=== PATIENT | male | born 1995 | race Caucasian/White ===

== ENCOUNTER 2016-08-15 19:09 | Emergency (ER) | payer BC ==
[~2016-08-15] VITALS: Ht 180.3 cm; Wt 77.7 kg
[2016-08-15 19:34] VITALS: TEMP 36.5; Ht 180.3 cm; Wt 77.7 kg
[2016-08-15 20:59] LABS: BASO % 0.1 %; BASO ABS # 0.01 K/uL (0-0.2); COMPLETE YES; EOS % 1.6 %; IG% 0.4 %; LYMPH % 21.1 %; LYMPH ABS # 1.42 K/uL (1.2-3.4); MEAN CELL VOLUME 87.9 fL (80-100); MEAN CORPUSCULAR HGB CONC 36.5 g/dl (32-36); MEAN PLATELET VOLUME 9.1 fL (7.4-10.4); NEUT % 69.8 %; PLATELET COUNT 179 K/uL (130-400); RED BLOOD COUNT 3.87 M/uL (4.7-6.1); WHITE BLOOD COUNT 6.72 K/uL (4.8-10.8)
[2016-08-15 21:08] LABS: URINE APPEARANCE CLEAR (CLEAR); URINE BILIRUBIN NEG (NEG); URINE COLOR YELLOW; URINE NITRITE NEG (NEG); URINE SPECIFIC GRAVITY 1.012 (1.000-1.030); UROBILINOGEN NEG (NEG); ZZUR CULT IF INDIC CLEAN CATCH NO
[2016-08-15 21:11] LABS: MANUAL MICROSCOPIC REQUIRED? NO; REVIEW REQ? NO
[2016-08-15 21:25] LABS: BUN/CREATININE RATIO 19.5 (10-20); CREATININE 0.88 mg/dl (0.60-1.40); POTASSIUM 3.9 mmol/L (3.5-5.1)
[2016-08-15] MEDS ORDERED: OPTIRAY 320 IV PRN (21:30)
--- NOTE | 2016-08-15 22:54 | DIAGNOSTIC IMAGING REPORT ---
CT ABD/PELVIS IV CONTRAST ONLY CLINICAL HISTORY: Abdominal pain status post trauma. History of splenomegaly. COMPARISON STUDY: None. TECHNIQUE: Following the IV administration of 116 mL of Optiray-320, CT scan of the abdomen and pelvis was performed from the lung bases to the proximal femurs. Images are reviewed in the axial, sagittal, and coronal planes. IV contrast was administered without complication. CT DOSE: 275.28 mGy.cm FINDINGS: Lower chest: The heart is normal in size and configuration, without pericardial effusion. The lung bases and pleural spaces are clear. Liver: The contrast-enhanced liver is normal in size, contour, and attenuation. There is no intrahepatic biliary ductal dilatation. The hepatic veins and portal veins are patent. Gallbladder: Unremarkable. Spleen: The spleen is mildly enlarged measuring 17 cm. There is no evidence of acute splenic injury. Pancreas: Unremarkable. Adrenal glands: Unremarkable. Kidneys: There is symmetric renal cortical enhancement. The kidneys are normal in size without hydronephrosis. Bowel: There are no transition zones indicate bowel obstruction. There is no evidence of acute diverticulitis. There are no extraluminal air collections. There is no interloop fluid. Peritoneum: There is no intraperitoneal free air or abdominal ascites. Vasculature: The abdominal aorta is normal in course and caliber. Adenopathy: None. Pelvic viscera: The bladder, and pelvic viscera are unremarkable. Skeletal structures: No destructive osseous lesions are seen. IMPRESSION: 1. Splenomegaly 2. No acute findings. No CT evidence of acute intra-abdominal or pelvic injury Electronically signed by: Landon Verduzco M.D. 08/15/2016 10:53 PM Dictated Date/Time: 08/15/2016 10:50 PM
[2016-08-16 00:02] VITALS: BP 140/72; PULSE 46; O2SAT 96
--- NOTE | 2016-08-16 02:29 | EMERGENCY ROOM VISIT NOTE ---
History Report prepared by Prateekibgraciela: Leslie Serna Under the Supervision of: Dr. Arthur Castillo M.D. First contact with patient: 20:26 Chief Complaint: ABDOMINAL PAIN Stated Complaint: RIGHT ABD TENDERNESS Nursing Triage Summary: patient c/o left sided abd pain after being elbowed playing basketball earlier tonight . states he has a hx of spleen issue and wanted to be checked. 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 The patient states that he has a history of spherocytosis and was playing basketball earlier and was injured. He reports that he went to block someone and got elbowed very hard in the stomach. He complains of bruising and nausea. The patient rates his pain as a 3/10 when he is not moving but a 6/10 when he is moving. Pt denies LOC, headache, visual changes, neck pain, chest pain, breathing difficulties, vomiting, back pain, extremity pain, numbness, weakness , open wounds, active bleeding, or other complaints. 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 A total of ten systems were reviewed and were otherwise negative. Past Medical & Surgical Medical Problems: (1) Spherocytosis Family History No pertinent family history stated. Social History Smoking Status: Never Smoker Housing Status: lives with roommate Occupation Status: [employer] Current/Historical Medications No Active Prescriptions or Reported Meds Allergies Coded Allergies: No Known Allergies (Unverified , 08/15/16) Physical Exam Vital Signs Date Time Temp Pulse Resp B/P Pulse Ox O2 Delivery O2 Flow Rate FiO2 08/16/16 00:02 46 18 140/72 96 08/15/16 22:58 47 16 118/68 99 Room Air 08/15/16 21:16 48 20 124/58 97 Room Air 08/15/16 20:47 50 08/15/16 19:34 36.5 64 18 141/72 99 Room Air Physical Exam GENERAL: Awake, alert, well-appearing, in no distress HENT: Normocephalic, atraumatic. Oropharynx unremarkable. EYES: Normal conjunctiva. Sclera non-icteric. NECK: Supple. No nuchal rigidity. FROM. No JVD. RESPIRATORY: Clear to auscultation. CARDIAC: Bradycardic rate, normal rhythm. Extremities warm and well perfused. Pulses equal. ABDOMEN: Soft, non-distended. Abrasion and contusion on the left flank. Left upper quadrant tenderness. No rebound or guarding. No masses. RECTAL: Deferred. MUSCULOSKELETAL: Chest examination reveals no tenderness. The back is symmetrical on inspection without obvious abnormality. No joint edema. LOWER EXTREMITIES: Calves are equal size bilaterally and non-tender. No edema. No discoloration. NEURO: Normal sensorium. No sensory or motor deficits noted. SKIN: No rash or jaundice noted. Medical Decision & Procedures ER Provider Diagnostic Interpretation: CT results as stated below per my review and radiologist interpretation CT ABD/PELVIS IV CONTRAST ONLY FINDINGS: Lower chest: The heart is normal in size and configuration, without pericardial effusion. The lung bases and pleural spaces are clear. Liver: The contrast-enhanced liver is normal in size, contour, and attenuation. There is no intrahepatic biliary ductal dilatation. The hepatic veins and portal veins are patent. Gallbladder: Unremarkable. Spleen: The spleen is mildly enlarged measuring 17 cm. There is no evidence of acute splenic injury. Pancreas: Unremarkable. Adrenal glands: Unremarkable. Kidneys: There is symmetric renal cortical enhancement. The kidneys are normal in size without hydronephrosis. Bowel: There are no transition zones indicate bowel obstruction. There is no evidence of acute diverticulitis. There are no extraluminal air collections. There is no interloop fluid. Peritoneum: There is no intraperitoneal free air or abdominal ascites. Vasculature: The abdominal aorta is normal in course and caliber. Adenopathy: None. Pelvic viscera: The bladder, and pelvic viscera are unremarkable. Skeletal structures: No destructive osseous lesions are seen. IMPRESSION: 1. Splenomegaly 2. No acute findings. No CT evidence of acute intra-abdominal or pelvic injury Electronically signed by: Landon Verduzco M.D. 08/15/2016 10:53 PM Dictated Date/Time: 08/15/2016 10:50 PM Laboratory Results 08/15/16 20:40 Red Blood Count 3.87, Mean Corpuscular Volume 87.9, Mean Corpuscular Hemoglobin 32.0, Mean Corpuscular Hemoglobin Concent 36.5, Mean Platelet Volume 9.1, Neutrophils (%) (Auto) 69.8, Lymphocytes (%) (Auto) 21.1, Monocytes (%) (Auto) 7.0, Eosinophils (%) (Auto) 1.6, Basophils (%) (Auto) 0.1, Neutrophils # (Auto) 4.68, Lymphocytes # (Auto) 1.42, Monocytes # (Auto) 0.47, Eosinophils # (Auto) 0.11, Basophils # (Auto) 0.01 08/15/16 20:40 Test 08/15/16 20:40 White Blood Count 6.72 K/uL (4.8-10.8) Red Blood Count 3.87 M/uL (4.7-6.1) Hemoglobin 12.4 g/dL (14.0-18.0) Hematocrit 34.0 % (42-52) Mean Corpuscular Volume 87.9 fL (80-100) Mean Corpuscular Hemoglobin 32.0 pg (25-34) Mean Corpuscular Hemoglobin Concent 36.5 g/dl (32-36) Platelet Count 179 K/uL (130-400) Mean Platelet Volume 9.1 fL (7.4-10.4) Neutrophils (%) (Auto) 69.8 % Lymphocytes (%) (Auto) 21.1 % Monocytes (%) (Auto) 7.0 % Eosinophils (%) (Auto) 1.6 % Basophils (%) (Auto) 0.1 % Neutrophils # (Auto) 4.68 K/uL (1.4-6.5) Lymphocytes # (Auto) 1.42 K/uL (1.2-3.4) Monocytes # (Auto) 0.47 K/uL (0.11-0.59) Eosinophils # (Auto) 0.11 K/uL (0-0.5) Basophils # (Auto) 0.01 K/uL (0-0.2) RDW Standard Deviation 52.8 fL (36.4-46.3) RDW Coefficient of Variation 16.5 % (11.5-14.5) Immature Granulocyte % (Auto) 0.4 % Immature Granulocyte # (Auto) 0.03 K/uL (0.00-0.02) Urine Color YELLOW Urine Appearance CLEAR (CLEAR) Urine pH 5.0 (4.5-7.5) Urine Specific [place] 1.012 (1.000-1.030) Urine Protein NEG (NEG) Urine Glucose (UA) NEG (NEG) Urine Ketones NEG (NEG) Urine Occult Blood NEG (NEG) Urine Nitrite NEG (NEG) Urine Bilirubin NEG (NEG) Urine Urobilinogen NEG (NEG) Urine Leukocyte Esterase NEG (NEG) Anion Gap 9.0 mmol/L (3-11) Est Creatinine Clear Calc Drug Dose 140.2 ml/min Estimated GFR () 141.3 Estimated GFR (Non- 121.9 BUN/Creatinine Ratio 19.5 (10-20) Calcium Level 9.0 mg/dl (8.5-10.1) Total Bilirubin 3.1 mg/dl (0.2-1) Direct Bilirubin 0.3 mg/dl (0-0.2) Aspartate Amino Transf (AST/SGOT) 18 U/L (15-37) Alanine Aminotransferase (ALT/SGPT) 22 U/L (12-78) Alkaline Phosphatase 55 U/L (45-117) Total Protein 7.7 gm/dl (6.4-8.2) Albumin 4.7 gm/dl (3.4-5.0) Lipase 131 U/L (73-393) Laboratory results reviewed by ak ED Course 2025: The patient was evaluated in room B11A. A complete history and physical exam was performed. 225: The patient just got back from CT. 0015: I reevaluated the patient. Discussed results and discharge instructions: He verbalized understanding and agreement. The patient is ready for discharge. Medical Decision Triage Nursing notes reviewed. The patient's presentation and history were concerning for flank pain and history of splenomegaly. Etiologies such as soft tissue injury, fracture, splenic rupture, intra- abdominal injury, as well as others were entertained. Patient was evaluated. Clinically he was doing well. He declined analgesia. The patient had blood work obtained. He had a slight anemia but he notes that this is chronic for him. His chemistry panel revealed slight elevation of his little improvement but otherwise was unremarkable. Urinalysis was negative. LFTs and lipase were negative. The patient underwent CT imaging to further evaluate his spleen due to the contusion on the left flank. Thankfully this was negative except splenomegaly was noted. The patient was informed. He was feeling well. She declined any analgesia. Conservative management was discussed. The patient was in agreement and he will follow-up closely as an outpatient. Contact precautions were discussed. By the evaluation outlined above other emergent etiologies such as those listed in the differential, as well as others, were deemed relatively unlikely. The patient was informed about the findings as listed above. All questions were answered and he was pleased with the treatment. Return instructions were outlined and the patient was discharged in stable condition. The patient was referred to his PCP for follow-up this week for a recheck of the current condition. The chart was completed utilizing [employer] voice recognition software. Grammatical errors, random word insertions, pronoun errors, and incomplete sentences are an occasional consequence of this system due to software limitations, ambient noise, and hardware issues. Any formal questions or concerns about the content, text, or information contained within the body of this dictation should be directly addressed to the physician for clarification. Impression Primary Impression: Contusion of flank Additional Impression: Splenomegaly Scribe Attestation The scribe's documentation has been prepared under my direction and personally reviewed by me in its entirety. I confirm that the note above accurately reflects all work, treatment, procedures, and medical decision making performed by me. Departure Information Dispostion Home / Self-Care Prescriptions No Active Prescriptions or Reported Meds Referrals [facility] (PCP) Forms HOME CARE DOCUMENTATION FORM, IMPORTANT VISIT INFORMATION Patient Instructions My [facility] Additional Instructions Diagnoses: Left flank contusion Splenomegaly Acetaminophen(Tylenol) may be used for fever or pain. Use 1000mg every six hours as needed. Avoid using more than 4000mg in a 24 hour period. Ice compresses for 20 minutes at a time four times daily for 2-3 days. Return to the ER immediately for worsening or persistent abdominal pain, vomiting, fevers, chest pains, difficulty breathing, black or bloody stools, worsening of your condition, or as needed. Follow up with your primary physician in 2-3 days for a recheck of your current condition. Problem Qualifiers
== END 2016-08-16 00:02 | disposition home or self-care (01) ==
LOC: C.EDB 19:10
DX: S30.1XXA Contusion of abdominal wall, initial encounter (principal); W50.0XXA Accidental hit or strike by another person, initial encounter; Y93.67 Activity, basketball; D58.0 Hereditary spherocytosis